=== PATIENT | female | born 1970 ===

== ENCOUNTER → 2021-06-01 | Outpatient (CLI) | payer OTHER | LOC: CAT 15:43 | PROVIDERS: ATTEND Internal Medicine | DX: Z13.6 Encounter for screening for cardiovascular disorders (principal); I25.10 Atherosclerotic heart disease of native coronary artery without angina pectoris; E78.00 Pure hypercholesterolemia, unspecified ==

== ENCOUNTER → 2021-06-01 | Outpatient (CLI) | payer OTHER | LOC: SJCVCIMAG 10:31 | DX: R94.31 Abnormal electrocardiogram [ECG] [EKG] (principal) ==